=== PATIENT | female | born 1935 | race Caucasian/White ===

== ENCOUNTER 2020-01-11 16:36 | Inpatient (IN) | payer MEDICARE, OTHER ==
[~2020-01-11] VITALS: Ht 162.6 cm; Wt 92.8 kg
[2020-01-11] MEDS ORDERED: DILTIAZEM 5 MG/ML, 5ML ONE (17:04)
[2020-01-11] MEDS ORDERED: DILTIAZEM 60 MG TABLET ONE (17:04)
--- NOTE | 2020-01-11 17:13 | NUR ---
PT SITTING IN BED, MEDICATED TO NOV, WILL CONTINUE TO MONITOR.
[2020-01-11] MEDS ORDERED: DILTIAZEM 5 MG/ML, 5ML IVPush ONE ×2 (17:30→19:00)
[2020-01-11] MEDS ORDERED: DILTIAZEM 60 MG TABLET PO ONE (17:30)
[2020-01-11 17:36] LABS: BASOPHILS # (AUTO) 0.03 x10^3/uL (0-0.1); BASOPHILS % (AUTO) 0 % (0-1); EOSINOPHILS # (AUTO) 1.12 x10^3/uL (0-0.4); EOSINOPHILS % (AUTO) 11 % (1-7); LYMPHOCYTES # (AUTO) 2.17 x10^3/uL (1-3.4); LYMPHOCYTES % (AUTO) 22 % (22-44); MD NO; MEAN CORPUSCULAR HEMOGLOBIN 28.8 pg (27.0-34.8); MEAN CORPUSCULAR HGB CONC 32.7 g/dL (32.4-35.8); MEAN PLATELET VOLUME 10.7 fL (7.4-10.4); MONOCYTES # (AUTO) 0.64 x10^3/uL (0.2-0.8); MONOCYTES % (AUTO) 6 % (2-9); NEUTROPHILS # (AUTO) 6.04 x10^3/uL (1.8-6.8); NEUTROPHILS % (AUTO) 60 % (42-75); PLATELET COUNT 159 x10^3/uL (130-400); RED CELL DISTRIBUTION WIDTH 13.6 % (9.6-15.2)
[2020-01-11 17:42] LABS: ALANINE AMINOTRANSFERASE 24 U/L (12-78); ALBUMIN 2.7 g/dL (3.4-5.0); ANION GAP 6 mmol/L (5-15); CALCIUM 8.6 mg/dL (8.5-10.1); CHLORIDE 109 mmol/L (98-107); CREATININE 1.12 mg/dL (0.55-1.02)
[2020-01-11 17:44] LABS: INTERNATIONAL NORMALIZED RATIO 1.02 (0.93-1.1); PROTHROMBIN TIME 10.8 Seconds (9.6-11.5)
[2020-01-11 17:47] LABS: ALKALINE PHOSPHATASE 99 U/L (45-117); BILIRUBIN,TOTAL 0.9 mg/dL (0.2-1.0); TOTAL PROTEIN 6.8 g/dL (6.4-8.2); TROPONIN I < 0.015 ng/mL (0.000-0.045)
[2020-01-11] MEDS ORDERED: ALBU1.25 NEB (17:54)
[2020-01-11] MEDS ORDERED: TRAM50TA2 PO (17:54)
[2020-01-11] MEDS ORDERED: SPIR25TA5 PO (17:54)
--- NOTE | 2020-01-11 17:55 | NUR ---
PT SITTING IN BED, NO SIGNS OF DISTRESS. WILL CONTINUE TO MONITOR.
--- NOTE | 2020-01-11 18:19 | NUR ---
PT SITTING IN BED, NO SIGNS OF DISTRESS, WILL CONTINUE TO MONITOR.
--- NOTE | 2020-01-11 18:46 | NUR ---
GABI, DAUGHTER, OKAY TO UPDATE, .
--- NOTE | 2020-01-11 18:59 | NUR ---
REPORT GIVEN TO RYAN DICKERSON.
--- NOTE | 2020-01-11 19:03 | NUR ---
PT SITTING UP ON GURNEY WATCHING TV, MONITORS IN PLACE, SIDERAIL SUP X2, CALL LIGHT WITHIN REACH. MEDICATED PER MAR. AWAITING ROOM FOR ADMIT
--- NOTE | 2020-01-11 20:52 | NUR ---
ATTEMPTED TO CALL REPORT, NOTIFIED THAT RN WILL CALL BACK FOR REPORT
[2020-01-11] MEDS ORDERED: ASPIRIN 325 MG TABLET EC PO ONE (21:00)
[2020-01-11] MEDS ORDERED: ONDANSETRON 2MG/ML, 2ML IVPush PRN (21:00)
[2020-01-11] MEDS ORDERED: hydrALAzine 20 MG/ML, 1ML IVPush PRN (21:00)
[2020-01-11] MEDS ORDERED: ACETAMINOPHEN 325 MG TABLET PO PRN (21:00)
[2020-01-11 22:00] VITALS: BP 128/62
[2020-01-11] MEDS: ALBUTEROL HFA 90 MCG/SPRAY INH PRN (23:32)
[2020-01-12 01:47] VITALS: BP 118/94
[2020-01-12] MEDS: DILTIAZEM 125 MG in SODIUM CHLORIDE 0.9% 100 ML IV SCH ×2 (05:38→17:55)
[2020-01-12] MEDS: ASPIRIN 325 MG TABLET EC PO SCH (05:39)
[2020-01-12] MEDS: ALBUTEROL HFA 90 MCG/SPRAY INH PRN (05:39)
[2020-01-12 05:43] LABS: ANION GAP 6 mmol/L (5-15); CALCIUM 8.8 mg/dL (8.5-10.1); CHLORIDE 109 mmol/L (98-107)
[2020-01-12 05:49] LABS: CREATININE 0.98 mg/dL (0.55-1.02); TROPONIN I 0.021 ng/mL (0.000-0.045)
[2020-01-12 06:45] LABS: MEAN CORPUSCULAR HEMOGLOBIN 28.4 pg (27.0-34.8); MEAN CORPUSCULAR HGB CONC 31.9 g/dL (32.4-35.8); MEAN CORPUSCULAR VOLUME 88.8 fL (80-100); MEAN PLATELET VOLUME 10.2 fL (7.4-10.4); PLATELET COUNT 85 x10^3/uL (130-400); RED BLOOD COUNT 4.94 x10^6/uL (3.82-5.3); RED CELL DISTRIBUTION WIDTH 14.1 % (9.6-15.2)
[2020-01-12 06:47] LABS: MD SCAN
[2020-01-12 06:48] LABS: BASOPHILS # (AUTO) 0.14 x10^3/uL (0-0.1); BASOPHILS % (AUTO) 2 % (0-1); EOSINOPHILS # (AUTO) 1.54 x10^3/uL (0-0.4); EOSINOPHILS % (AUTO) 16 % (1-7); LYMPHOCYTES % (AUTO) 24 % (22-44); MONOCYTES # (AUTO) 0.87 x10^3/uL (0.2-0.8); MONOCYTES % (AUTO) 9 % (2-9); NEUTROPHILS % (AUTO) 50 % (42-75)
[2020-01-12 07:37] VITALS: BP 125/81
[2020-01-12] MEDS: LORazepam 0.5MG TABLET PO PRN ×2 (08:54→21:20)
[2020-01-12] MEDS: SPIRONOLACTONE 25 MG TABLET PO SCH (08:54)
[2020-01-12 13:43] VITALS: BP 101/61
[2020-01-12] MEDS ORDERED: METH5TAB4 PO (14:32)
[2020-01-12] MEDS ORDERED: LIDO700A20 TD (14:32)
[2020-01-12] MEDS ORDERED: OMEP40CA42 PO (14:32)
[2020-01-12] MEDS ORDERED: DULO60CA56 PO (14:32)
[2020-01-12] MEDS ORDERED: LOSA100T14 PO (14:32)
[2020-01-12] MEDS ORDERED: CYAN-10 PO (14:32)
[2020-01-12] MEDS ORDERED: SULI150T PO (14:32)
[2020-01-12] MEDS ORDERED: TOLT2CAP22 PO (14:32)
[2020-01-12] MEDS ORDERED: NITR0.6T4 SL (14:32)
[2020-01-12] MEDS ORDERED: CARV6.25 PO (14:32)
[2020-01-12] MEDS ORDERED: FURO40TA6 PO (14:32)
[2020-01-12] MEDS: ENOXAPARIN 40 MG/0.4 ML SQ SCH (14:37)
[2020-01-12] MEDS: INSULIN LISPRO 100 UNITS/ML, PEN SQ-INSULIN SCH ×2 (17:33→21:20)
[2020-01-12 20:36] VITALS: BP 122/79
[2020-01-12] MEDS ORDERED: METOPROLOL 1 MG/ML, 5ML IVPush PRN (22:00)
[2020-01-13 01:42] VITALS: BP 110/65
[2020-01-13] MEDS: ASPIRIN 325 MG TABLET EC PO SCH (05:21)
[2020-01-13 05:36] LABS: MEAN CORPUSCULAR HEMOGLOBIN 28.7 pg (27.0-34.8); MEAN CORPUSCULAR HGB CONC 32.4 g/dL (32.4-35.8); MEAN CORPUSCULAR VOLUME 88.7 fL (80-100); PLATELET COUNT 138 x10^3/uL (130-400); RED BLOOD COUNT 4.58 x10^6/uL (3.82-5.3); RED CELL DISTRIBUTION WIDTH 14.2 % (9.6-15.2)
[2020-01-13 05:46] LABS: CHLORIDE 108 mmol/L (98-107)
[2020-01-13 05:53] LABS: MD YES
[2020-01-13 05:54] LABS: BASOS#(MANUAL) 0.17 x10^3/uL (0-0.1); BASOS% (MANUAL) 1 % (0-1); EOS#(MANUAL) 0.68 x10^3/uL (0.0-0.4); EOS% (MANUAL) 4 % (1-7); LYMPH#(MANUAL) 0.86 x10^3/uL (1-3.4); LYMPHS% (MANUAL) 5 % (22-44); MONOS#(MANUAL) 0.86 x10^3/uL (0.3-2.7); MONOS% (MANUAL) 5 % (2-9); SEG#(MANUAL) 14.54 x10^3/uL (1.8-6.8); SEGS% (MANUAL) 85 % (42-75)
[2020-01-13 05:55] LABS: <PLATELET ESTIMATE> ADEQUATE; <RBC MORPHOLOGY> NORMAL; LARGE PLATELETS 1+
[2020-01-13 06:01] LABS: ALANINE AMINOTRANSFERASE 27 U/L (12-78); ALBUMIN 2.8 g/dL (3.4-5.0); ALKALINE PHOSPHATASE 89 U/L (45-117); ANION GAP 8 mmol/L (5-15); BILIRUBIN,TOTAL 1.4 mg/dL (0.2-1.0); CALCIUM 8.8 mg/dL (8.5-10.1); CREATININE 1.18 mg/dL (0.55-1.02); TOTAL PROTEIN 7.3 g/dL (6.4-8.2)
[2020-01-13] MEDS: DILTIAZEM 125 MG in SODIUM CHLORIDE 0.9% 100 ML IV SCH (06:28)
[2020-01-13 07:31] VITALS: BP 126/81
[2020-01-13] MEDS: CARVEDILOL 6.25 MG TABLET PO SCH ×2 (07:49→19:30)
[2020-01-13] MEDS: INSULIN LISPRO 100 UNITS/ML, PEN SQ-INSULIN SCH ×4 (07:50→20:37)
[2020-01-13] MEDS: SPIRONOLACTONE 25 MG TABLET PO SCH (07:51)
[2020-01-13 08:10] VITALS: BP 138/57
[2020-01-13] MEDS: ENOXAPARIN 40 MG/0.4 ML SQ SCH (12:03)
[2020-01-13 12:14] VITALS: BP 109/59
[2020-01-13] MEDS: DILTIAZEM 30 MG TABLET PO SCH ×3 (13:00→20:36)
[2020-01-13] MEDS ORDERED: DILTIAZEM 60 MG TABLET ONE (13:38)
[2020-01-13 17:23] LABS: MICROSCOPIC INDICATED
[2020-01-13 17:24] LABS: CULTURE INDICATED? YES
[2020-01-13 19:30] VITALS: BP 117/73
[2020-01-14 02:00] VITALS: BP 102/72
[2020-01-14 05:26] VITALS: BP 113/62
[2020-01-14] MEDS: ASPIRIN 325 MG TABLET EC PO SCH (05:27)
[2020-01-14] MEDS: CARVEDILOL 6.25 MG TABLET PO SCH ×2 (05:27→18:21)
[2020-01-14] MEDS: DILTIAZEM 30 MG TABLET PO SCH ×4 (05:27→19:35)
[2020-01-14 07:53] VITALS: BP 113/67
[2020-01-14 08:44] LABS: MEAN CORPUSCULAR HEMOGLOBIN 28.4 pg (27.0-34.8); MEAN CORPUSCULAR HGB CONC 31.9 g/dL (32.4-35.8); MEAN PLATELET VOLUME 10.8 fL (7.4-10.4); PLATELET COUNT 138 x10^3/uL (130-400); RED CELL DISTRIBUTION WIDTH 14.3 % (9.6-15.2)
[2020-01-14 08:56] LABS: ALANINE AMINOTRANSFERASE 24 U/L (12-78); ALBUMIN 2.8 g/dL (3.4-5.0); ANION GAP 8 mmol/L (5-15); CALCIUM 9.2 mg/dL (8.5-10.1); CHLORIDE 103 mmol/L (98-107); CREATININE 1.25 mg/dL (0.55-1.02)
[2020-01-14 08:58] LABS: ALKALINE PHOSPHATASE 96 U/L (45-117); BILIRUBIN,TOTAL 1.1 mg/dL (0.2-1.0); TOTAL PROTEIN 7.6 g/dL (6.4-8.2)
[2020-01-14] MEDS: AZITHROMYCIN 500 MG in SODIUM CHLORIDE 0.9% 250 ML IV SCH (09:07)
[2020-01-14] MEDS: INSULIN LISPRO 100 UNITS/ML, PEN SQ-INSULIN SCH ×4 (09:07→21:37)
[2020-01-14] MEDS: SPIRONOLACTONE 25 MG TABLET PO SCH (09:08)
[2020-01-14 09:13] LABS: BASOPHILS % (AUTO) 0 % (0-1); EOSINOPHILS % (AUTO) 0 % (1-7); LYMPHOCYTES # (AUTO) 1.03 x10^3/uL (1-3.4); LYMPHOCYTES % (AUTO) 9 % (22-44); MD SCAN; MONOCYTES % (AUTO) 2 % (2-9); NEUTROPHILS # (AUTO) 9.96 x10^3/uL (1.8-6.8); NEUTROPHILS % (AUTO) 89 % (42-75)
[2020-01-14] MEDS: ENOXAPARIN 40 MG/0.4 ML SQ SCH (12:18)
[2020-01-14] MEDS: CEFTRIAXONE PMX 1GM/50ML 50 ML IV SCH (12:18)
[2020-01-14 13:57] VITALS: BP 95/49
[2020-01-14 16:15] VITALS: BP 101/48
[2020-01-14] MEDS: INSULIN GLARGINE 100 UNITS/ML, PEN SQ-INSULIN SCH (19:35)
[2020-01-14 19:55] VITALS: BP 108/63
[2020-01-15 02:10] VITALS: BP 113/71
[2020-01-15] MEDS: DILTIAZEM 30 MG TABLET PO SCH (05:49)
[2020-01-15] MEDS: CARVEDILOL 6.25 MG TABLET PO SCH ×2 (05:49→16:45)
[2020-01-15] MEDS: ASPIRIN 325 MG TABLET EC PO SCH (05:49)
[2020-01-15 06:00] VITALS: BP 113/66
[2020-01-15 08:05] VITALS: BP 113/63
[2020-01-15] MEDS: CEFTRIAXONE PMX 1GM/50ML 50 ML IV SCH (08:27)
[2020-01-15] MEDS: INSULIN LISPRO 100 UNITS/ML, PEN SQ-INSULIN SCH ×4 (08:27→21:20)
[2020-01-15] MEDS: INSULIN GLARGINE 100 UNITS/ML, PEN SQ-INSULIN SCH ×2 (08:28→21:21)
[2020-01-15] MEDS: AZITHROMYCIN 500 MG in SODIUM CHLORIDE 0.9% 250 ML IV SCH (09:00)
[2020-01-15] MEDS: DILTIAZEM 60 MG TABLET PO SCH ×3 (11:56→21:19)
[2020-01-15] MEDS: ENOXAPARIN 40 MG/0.4 ML SQ SCH (11:56)
[2020-01-15] MEDS ORDERED: INSULIN GLARGINE 100 UNITS/ML, PEN SQ-INSULIN ONE (12:00)
[2020-01-15 14:34] VITALS: BP 97/52
[2020-01-15 21:33] VITALS: BP 110/63
[2020-01-16 01:43] VITALS: BP 103/61
[2020-01-16] MEDS: ASPIRIN 325 MG TABLET EC PO SCH (06:15)
[2020-01-16] MEDS: DILTIAZEM 60 MG TABLET PO SCH ×4 (06:15→20:40)
[2020-01-16] MEDS: CARVEDILOL 6.25 MG TABLET PO SCH ×2 (06:16→17:45)
[2020-01-16 06:20] VITALS: BP 104/65
[2020-01-16 07:04] VITALS: BP 122/74
[2020-01-16] MEDS: CEFTRIAXONE PMX 1GM/50ML 50 ML IV SCH (09:23)
[2020-01-16] MEDS: INSULIN GLARGINE 100 UNITS/ML, PEN SQ-INSULIN SCH ×2 (09:24→20:44)
[2020-01-16] MEDS: INSULIN LISPRO 100 UNITS/ML, PEN SQ-INSULIN SCH ×4 (09:25→20:44)
[2020-01-16] MEDS ORDERED: ALBUTEROL SULFATE 2.5 MG/3 ML NPPB PRN (10:30)
[2020-01-16] MEDS: AZITHROMYCIN 500 MG in SODIUM CHLORIDE 0.9% 250 ML IV SCH (10:42)
[2020-01-16] MEDS: ENOXAPARIN 40 MG/0.4 ML SQ SCH (11:57)
[2020-01-16 12:07] LABS: ANION GAP 6 mmol/L (5-15); CALCIUM 9.2 mg/dL (8.5-10.1); CHLORIDE 107 mmol/L (98-107)
[2020-01-16 13:09] LABS: BASOPHILS # (AUTO) 0.09 x10^3/uL (0-0.1); BASOPHILS % (AUTO) 1 % (0-1); EOSINOPHILS # (AUTO) 0.09 x10^3/uL (0-0.4); EOSINOPHILS % (AUTO) 1 % (1-7); LYMPHOCYTES % (AUTO) 17 % (22-44); MD NO; MEAN CORPUSCULAR HEMOGLOBIN 28.5 pg (27.0-34.8); MEAN CORPUSCULAR HGB CONC 32.1 g/dL (32.4-35.8); MEAN CORPUSCULAR VOLUME 88.6 fL (80-100); MEAN PLATELET VOLUME 10.5 fL (7.4-10.4); MONOCYTES # (AUTO) 0.89 x10^3/uL (0.2-0.8); MONOCYTES % (AUTO) 7 % (2-9); NEUTROPHILS # (AUTO) 9.51 x10^3/uL (1.8-6.8); NEUTROPHILS % (AUTO) 74 % (42-75); PLATELET COUNT 198 x10^3/uL (130-400); RED BLOOD COUNT 4.75 x10^6/uL (3.82-5.3); RED CELL DISTRIBUTION WIDTH 14.3 % (9.6-15.2)
[2020-01-16] MEDS ORDERED: TAMSULOSIN 0.4 MG CAP.ER.24H PO ONE (14:00)
[2020-01-16 14:07] LABS: MICROSCOPIC NOT IND
[2020-01-16 14:32] VITALS: BP 112/67
[2020-01-16 20:01] VITALS: BP 105/73
[2020-01-17] MEDS: LORazepam 0.5MG TABLET PO PRN (01:17)
[2020-01-17 01:23] VITALS: BP 108/74
[2020-01-17 05:43] VITALS: BP 107/69
[2020-01-17] MEDS: DILTIAZEM 60 MG TABLET PO SCH ×2 (05:45→12:00)
[2020-01-17] MEDS: ASPIRIN 325 MG TABLET EC PO SCH (05:45)
[2020-01-17] MEDS: CARVEDILOL 6.25 MG TABLET PO SCH (05:45)
[2020-01-17 07:25] VITALS: BP 105/71
[2020-01-17 07:31] LABS: BASOPHILS # (AUTO) 0.03 x10^3/uL (0-0.1); BASOPHILS % (AUTO) 0 % (0-1); EOSINOPHILS # (AUTO) 0.02 x10^3/uL (0-0.4); EOSINOPHILS % (AUTO) 0 % (1-7); LYMPHOCYTES # (AUTO) 1.67 x10^3/uL (1-3.4); LYMPHOCYTES % (AUTO) 17 % (22-44); MD NO; MEAN CORPUSCULAR HEMOGLOBIN 28.6 pg (27.0-34.8); MEAN CORPUSCULAR HGB CONC 32.3 g/dL (32.4-35.8); MEAN CORPUSCULAR VOLUME 88.4 fL (80-100); MEAN PLATELET VOLUME 10.1 fL (7.4-10.4); MONOCYTES # (AUTO) 0.67 x10^3/uL (0.2-0.8); MONOCYTES % (AUTO) 7 % (2-9); NEUTROPHILS # (AUTO) 7.68 x10^3/uL (1.8-6.8); NEUTROPHILS % (AUTO) 76 % (42-75); PLATELET COUNT 169 x10^3/uL (130-400); RED BLOOD COUNT 4.86 x10^6/uL (3.82-5.3); RED CELL DISTRIBUTION WIDTH 14.4 % (9.6-15.2)
[2020-01-17 07:43] LABS: ANION GAP 6 mmol/L (5-15); CALCIUM 9.5 mg/dL (8.5-10.1); CHLORIDE 104 mmol/L (98-107); CREATININE 1.18 mg/dL (0.55-1.02)
[2020-01-17] MEDS: CEFTRIAXONE PMX 1GM/50ML 50 ML IV SCH (08:04)
[2020-01-17] MEDS: INSULIN GLARGINE 100 UNITS/ML, PEN SQ-INSULIN SCH (08:05)
[2020-01-17] MEDS: INSULIN LISPRO 100 UNITS/ML, PEN SQ-INSULIN SCH ×2 (08:05→12:00)
[2020-01-17] MEDS: AZITHROMYCIN 500 MG in SODIUM CHLORIDE 0.9% 250 ML IV SCH (09:52)
[2020-01-17] MEDS ORDERED: DILT60TA27 PO (10:53)
[2020-01-17] MEDS ORDERED: APIX5TAB PO (10:53)
[2020-01-17] MEDS ORDERED: CEFD300C37 PO (11:19)
[2020-01-17] MEDS ORDERED: AZIT500T10 PO (11:19)
[2020-01-17] MEDS ORDERED: LOSA25TA12 PO (11:35)
[2020-01-17] MEDS: ENOXAPARIN 40 MG/0.4 ML SQ SCH (13:45)
[2020-01-17 13:48] VITALS: BP 121/69
== END 2020-01-17 15:00 | disposition home or self-care (01) | DRG 190 ==
LOC: ED 17:40 → EDIP 19:38 → 3WST 21:32 → 5SO 01-15 23:22
PROVIDERS: ADMIT Internal Medicine; ATTEND Hospitalist
DX: J44.0 Chronic obstructive pulmonary disease with (acute) lower respiratory infection (principal); J18.9 Pneumonia, unspecified organism; D68.69 Other thrombophilia; J96.11 Chronic respiratory failure with hypoxia; N17.9 Acute kidney failure, unspecified; J44.1 Chronic obstructive pulmonary disease with (acute) exacerbation; I48.0 Paroxysmal atrial fibrillation; D72.810 Lymphocytopenia; E11.65 Type 2 diabetes mellitus with hyperglycemia; E66.9 Obesity, unspecified; Z68.35 Body mass index [BMI] 35.0-35.9, adult; Z20.828 Contact with and (suspected) exposure to other viral communicable diseases; G35 Multiple sclerosis; I08.1 Rheumatic disorders of both mitral and tricuspid valves; M45.9 Ankylosing spondylitis of unspecified sites in spine; Z79.4 Long term (current) use of insulin; G25.0 Essential tremor; Z82.49 Family history of ischemic heart disease and other diseases of the circulatory system; Z86.73 Personal history of transient ischemic attack (TIA), and cerebral infarction without residual deficits; Z86.718 Personal history of other venous thrombosis and embolism; Z90.49 Acquired absence of other specified parts of digestive tract; I10 Essential (primary) hypertension
CPT/HCPCS: 36415; 71045; 80048; 80053; 81001; 81003; 82728; 82962; 83036; 83615; 83880; 84145; 84443; 84484; 85025; 85379; 85610; 85730; 86140; 87077; 87086; 87186; 93005; 93306; 94640; 96374; 96375; 99285; G0378; J0456; J0696; J1650; J7613; J1815; J7050; J7512; U0001

== ENCOUNTER 2020-03-24 13:37 | Inpatient (IN) | payer MEDICARE, OTHER ==
[~2020-03-24] VITALS: Ht 157.5 cm; Wt 77.6 kg
[~2020-03-24 13:37] MED LIST: ACID1TAB7 PO; ALBU1.25 NEB; APIX5TAB PO; AZIT500T10 PO; CARV6.25 PO; CEFD300C37 PO; CYAN-10 PO; DILT60TA27 PO; DULO60CA56 PO; FURO40TA6 PO; LIDO700A20 TD; LOSA100T14 PO; LOSA25TA12 PO; METH5TAB4 PO; NITR0.6T4 SL; OMEP40CA42 PO; RISP0.5T24 PO; SPIR25TA5 PO; SULI150T PO; TOLT2CAP22 PO; TRAM50TA2 PO; metformin PO
--- NOTE | 2020-03-24 13:58 | NUR ---
XAVIER FROM [facility] D/T A-FIB(RATE 90'S-170'S) AND FATIGUE. HX OF A-FIB. DENIES COUGH/SOB/FEVER. PT HAS BILATERAL EDEMA ON LE. PT IS HYPOTENSIVE 77/42 AT THIS TIME. EDMD AWARE. NS BOLUS INFUSING AT THIS TIME. ALL MONITORS IN PLACE. CALL LIGHT WITHIN REACH. EDMD AT BEDSIDE TO EVALUATE AT THIS TIME.
--- NOTE | 2020-03-24 14:04 | NUR ---
BG 168 AT THIS TIME. EDMD NOTIFIED.
[2020-03-24 14:37] LABS: MEAN CORPUSCULAR HEMOGLOBIN 29.4 pg (27.0-34.8); MEAN CORPUSCULAR HGB CONC 32.6 g/dL (32.4-35.8); MEAN PLATELET VOLUME 9.6 fL (7.4-10.4); PLATELET COUNT 217 x10^3/uL (130-400); RED BLOOD COUNT 4.13 x10^6/uL (3.82-5.3); RED CELL DISTRIBUTION WIDTH 17.5 % (9.6-15.2)
[2020-03-24 14:40] LABS: ALBUMIN 2.5 g/dL (3.4-5.0); ANION GAP 7 mmol/L (5-15); CALCIUM 8.4 mg/dL (8.5-10.1); CHLORIDE 114 mmol/L (98-107)
--- NOTE | 2020-03-24 14:43 | NUR ---
NOTED PT INCONTINENT OF URINE AND STOOL. SKIN CARE AND FULL LINEN CHANGED COMPLETED. PT'S STRAIGHT CATH'D USING STERILE TECHNIQUE. PT TOLERATED WELL. THIS RN WALKED TO LAB.
[2020-03-24 14:46] LABS: ALANINE AMINOTRANSFERASE 13 U/L (12-78); ALKALINE PHOSPHATASE 105 U/L (45-117); BILIRUBIN,TOTAL 1.5 mg/dL (0.2-1.0); CREATININE 2.39 mg/dL (0.55-1.02); TOTAL PROTEIN 7.1 g/dL (6.4-8.2); TROPONIN I < 0.015 ng/mL (0.000-0.045)
[2020-03-24 14:48] LABS: D-DIMER 3.85 ug/mlFEU (0.00-0.52); INTERNATIONAL NORMALIZED RATIO 1.08 (0.93-1.1); PROTHROMBIN TIME 11.5 Seconds (9.6-11.5)
[2020-03-24 14:56] LABS: MD YES
[2020-03-24] MEDS ORDERED: SODIUM CHLORIDE FLUSH 10ML SYR IVF ONE (15:00)
[2020-03-24] MEDS ORDERED: SODIUM CHLORIDE 0.9% 1,000ML IVBOLUS ONE ×3 (15:00→18:30)
--- NOTE | 2020-03-24 15:13 | NUR ---
pt's bp is 71/36 at this time. edmd aware of hypotensive. ns 500ml bolus infusing at this time per edmd verbal order.
[2020-03-24 15:27] LABS: MICROSCOPIC INDICATED
[2020-03-24] MEDS ORDERED: ASPI-496 PO (15:29)
[2020-03-24] MEDS ORDERED: GLIP2.5T3 PO (15:30)
[2020-03-24] MEDS ORDERED: OMEP20TA62 PO (15:30)
[2020-03-24] MEDS ORDERED: SPIR25TA5 PO (15:31)
--- NOTE | 2020-03-24 15:36 | NUR ---
PT'S BP IS 80/36 AFTER 00ML NS BOLUS X 2 TIMES. EDMD AWARE AND EDMD ORDERED CTA AT THIS TIME. THIS RN PAGED CT AT THIS TIME.
--- NOTE | 2020-03-24 15:46 | NUR ---
CT CALLED D/T KIDNEY FUNCTION. EDMD NOTIFIED.
[2020-03-24 15:51] LABS: BAND#(MANUAL) 5.22 x10^3/uL; BANDS%(MANUAL) 36 % (0-7); BASOS#(MANUAL) 0.15 x10^3/uL (0-0.1); BASOS% (MANUAL) 1 % (0-1); LYMPHS% (MANUAL) 11 % (22-44); METAMYELOCYTES# (MANUAL) 0.29 x10^3/uL (0-0); METAMYELOCYTES% (MANUAL) 2 % (0-1); MONOS#(MANUAL) 1.89 x10^3/uL (0.3-2.7); MONOS% (MANUAL) 13 % (2-9); REACTIVE LYMPHS # (MANUAL) 0.15 x10^3/uL (0-0); REACTIVE LYMPHS % (MANUAL) 1 % (0-0); SEG#(MANUAL) 5.22 x10^3/uL (1.8-6.8); SEGS% (MANUAL) 36 % (42-75)
[2020-03-24 15:53] LABS: <PLATELET ESTIMATE> ADEQUATE; <PLT MORPHOLOGY> NORMAL PLT MORPH; ANISOCYTOSIS 1+; OVALOCYTES 1+
[2020-03-24] MEDS ORDERED: HEPARIN 5,000 UNITS/ML, 1ML ONE ×2 (16:07→23:43)
[2020-03-24] MEDS ORDERED: HEPARIN 25,000 UNITS/250ML PMX 250 ML ONE (16:07)
[2020-03-24] MEDS: HEPARIN 25,000 UNITS/250ML PMX 250 ML IV PRN (16:19)
--- NOTE | 2020-03-24 16:28 | NUR ---
pt medicated per emar. pt tolerated well. heparin infusing at this time.
--- NOTE | 2020-03-24 16:37 | NUR ---
2nd piv est by grady brandt by us. pt tolerated well.
--- NOTE | 2020-03-24 16:41 | NUR ---
us at bedside at this time.
--- NOTE | 2020-03-24 16:58 | NUR ---
med ordered from pharmacy at this time.
[2020-03-24] MEDS ORDERED: ALBUMIN HUMAN 25% 50 ML IV ONE (17:00)
[2020-03-24] MEDS ORDERED: BISACODYL 10 MG SUPP PR PRN (17:00)
[2020-03-24] MEDS ORDERED: ACETAMINOPHEN 325 MG TABLET PO PRN (17:00)
[2020-03-24] MEDS ORDERED: HEPARIN 5,000 UNITS/ML, 1ML IV ONE (17:00)
[2020-03-24] MEDS ORDERED: ONDANSETRON 2MG/ML, 2ML IVPush PRN (17:00)
--- NOTE | 2020-03-24 17:12 | NUR ---
albumin infusing at this time. pt's r ac piv was removed by accident at this time.
--- NOTE | 2020-03-24 17:22 | NUR ---
TASK RN: ALBUMIN BOLUS COMPLETED-B/P & HR STILL QUITE LOW. US TECHNICAL SOLUTIONS ENGINEER AT BEDSIDE. pROVIDER MADE AWARE OF CONTINUED HYPOTENSION, LE US READ- PLAN TO CONTINUE HEPARIN, PLACE CENTRAL LINE. START AMIODARONE AND HOPEFILLY REDUCING HR WILL RAISE B/P
[2020-03-24] MEDS ORDERED: FILTER 0.22 MICRON FOR AMIODARONE IV PRN (17:30)
--- NOTE | 2020-03-24 17:30 | NUR ---
AMIO BOLUSCOMPLETE WITH NO NOTICEABLE REDUCTION IN HR, OR IMPROVEMENT IN SBP
--- NOTE | 2020-03-24 17:36 | NUR ---
pt moved to trauma 3 at this time.
[2020-03-24] MEDS ORDERED: AMIODARONE 150 MG in DEXTROSE 5% 97 ML IVPB ONE (17:37)
--- NOTE | 2020-03-24 17:50 | NUR ---
LAB AT BEDSIDE- BLOOD CULTURES X 2 DRAWN
--- NOTE | 2020-03-24 17:50 | NUR ---
CENTRAL LINE PLACED IN STERILE MANNER WITH 2 PROVIDER CONSENT (PATIENT TOO ALTERED/DROWSY TO CONSENT)
[2020-03-24] MEDS ORDERED: AMIODARONE 150 MG in DEXTROSE 5% 100 ML IV ONE (18:00)
[2020-03-24] MEDS ORDERED: ALBUMIN HUMAN 25% 100 ML IV ONE (18:00)
[2020-03-24] MEDS: AMIODARONE 450 MG in DEXTROSE 5% 241 ML IV PRN (18:21)
--- NOTE | 2020-03-24 18:22 | NUR ---
Total on 2l NS infused (between Ems and ER) and amio maint gtt started: hr remains 137, 85/44 Levophed requested from pharmacy
[2020-03-24] MEDS ORDERED: NOREPINEPHRINE 8 MG in SODIUM CHLORIDE 0.9% 242 ML IV PRN (18:30)
[2020-03-24] MEDS: ERTAPENEM 1 GM in SODIUM CHLORIDE 0.9% 50 ML IV SCH (18:35)
--- NOTE | 2020-03-24 18:36 | NUR ---
levophed and ertapenem administerd per emar (levophed started at 0.1mcg/kg)
--- NOTE | 2020-03-24 18:47 | NUR ---
second b/p after levophed admin down to 94/53 (60). rate increased to 0.11mcg/kg/min
--- NOTE | 2020-03-24 18:54 | NUR ---
Ertapenem (abx) infusion complete, Provider asked if her would like complimentary abx (vanc)-provider considering. Also clarified need for Heparin and Amiodarone drips needs as patient's hr unchanged post amio bolus and 20 min of drip and heparin started as provider worried for clot ans patient with uncontrolled afib/bed bound and only on aspirin Report to Milagros DAVIS
--- NOTE | 2020-03-24 19:10 | NUR ---
report from grady assumed care of pt, pt in nad at this time vss
--- NOTE | 2020-03-24 19:27 | NUR ---
pt stooled linen changed no skin break down noted, redness noted to buttocks, pure wick placed
--- NOTE | 2020-03-24 20:27 | NUR ---
Float RN: Pt resting with no needs expressed. No acute changes noted.
[2020-03-24 20:50] LABS: TROPONIN I < 0.015 ng/mL (0.000-0.045)
--- NOTE | 2020-03-24 22:45 | NUR ---
able to reassume care of pt at this time vss pt sleeping
[2020-03-24] MEDS: SODIUM CHLORIDE 0.9% 1,000 ML IV SCH (22:56)
--- NOTE | 2020-03-24 23:05 | NUR ---
REQUESTED HUMALOG PEN FROM PHARMACY.
[2020-03-24] MEDS: INSULIN LISPRO 100 UNITS/ML, PEN SQ-INSULIN SCH (23:13)
[2020-03-24] MEDS: HEPARIN 5,000 UNITS/ML, 1ML IV PRN (23:46)
--- NOTE | 2020-03-24 23:54 | NUR ---
FLOJANES RN: PT HEPARIN ADJUSTED DUE TO ANTIXA. VERIFIED WITH IMAN Perdue RN. PT SLEEPING. RESPIRATIONS EVEN AND UNLABORED, NO DISTRESS NOTED. ALL VITALS STABLE
--- NOTE | 2020-03-25 00:01 | NUR ---
NEXT ANTIXA ORDERED WELL
--- NOTE | 2020-03-25 01:08 | NUR ---
Float RN: Pt sleeping with resp even and unlabored. VSS. IV drips infusing via pump. No acute changes noted.
--- NOTE | 2020-03-25 01:56 | NUR ---
REPORT TO MARSHAL
[2020-03-25 02:36] LABS: TROPONIN I < 0.015 ng/mL (0.000-0.045)
--- NOTE | 2020-03-25 03:26 | NUR ---
PT RESTING IN BED, SERVICE CLERK WILL CONTINUE TO MONITOR PT
--- NOTE | 2020-03-25 06:48 | NUR ---
PT RESTING IN BED, PT DENIED ANY WANTS OR NEEDS AT THIS TIME, EQUAL OPPORTUNITY ASSISTANT WILL CONTINUE TO MONITOR
--- NOTE | 2020-03-25 07:10 | NUR ---
REPORT RECEIVED FROM RYAN OBRIEN. ASSUMED CARE OF PT. PT CURRENTLY DOZING ON [place]. SKIN SLIGHTLY PALE, WARM AND DRY. RESP EVEN AND UNLABORED. PT ON CONT CARDIAC, BP AND SPO2 MONITORS. CALL LIGHT WITHIN REACH. WILL CONT TO MONITOR PT.
[2020-03-25] MEDS: INSULIN LISPRO 100 UNITS/ML, PEN SQ-INSULIN SCH ×4 (07:42→21:00)
[2020-03-25] MEDS ORDERED: PANTOPRAZOLE 40 MG IV ONE (07:44)
--- NOTE | 2020-03-25 08:00 | NUR ---
NO CHANGE MADE TO HEPARIN DRIP PER PROTOCOL.
[2020-03-25] MEDS: PANTOPRAZOLE 40 MG IV IVPush SCH (08:14)
--- NOTE | 2020-03-25 08:24 | NUR ---
LABS REDRAWN AT THIS TIME. PER RYAN OBRIEN FROM STOCK WORKER AND DELIVERER, PT'S ORIGINAL LABS WERE DRAWN OFF CENTRAL LINE AND THE DRAW WAS SLOW. WAITING FOR CONFIRMATION OF H&H AND WILL CALL MD IMMEDIATELY WITH RESULTS. PT DIFFICULT DRAW, THIRD COAT JOINER WAS ABLE TO GET BLOOD. PT AO X 4. SKIN SLIGHTLY PALE, WARM AND DRY. PT ON CONT BP, CARDIAC AND SPO2 MONITORS. CALL LIGHT WITHIN REACH. WILL CONT TO MONITOR PT.
[2020-03-25 08:29] LABS: MEAN CORPUSCULAR HEMOGLOBIN 29.6 pg (27.0-34.8); MEAN CORPUSCULAR HGB CONC 32.2 g/dL (32.4-35.8); MEAN PLATELET VOLUME 9.5 fL (7.4-10.4); PLATELET COUNT 240 x10^3/uL (130-400); RED BLOOD COUNT 4.28 x10^6/uL (3.82-5.3); RED CELL DISTRIBUTION WIDTH 17.4 % (9.6-15.2)
[2020-03-25 08:36] LABS: ALANINE AMINOTRANSFERASE 13 U/L (12-78); ALBUMIN 2.6 g/dL (3.4-5.0); ANION GAP 7 mmol/L (5-15); CALCIUM 8.8 mg/dL (8.5-10.1); CHLORIDE 115 mmol/L (98-107); CREATININE 1.79 mg/dL (0.55-1.02)
[2020-03-25 08:39] LABS: ALKALINE PHOSPHATASE 92 U/L (45-117); BILIRUBIN,TOTAL 1.6 mg/dL (0.2-1.0); TOTAL PROTEIN 7.1 g/dL (6.4-8.2)
[2020-03-25 08:44] LABS: MD YES
--- NOTE | 2020-03-25 08:47 | NUR ---
PT HAD SLIGHTLY SEMI-FORMED SOFT BM. PT CHANGED AND NEW SHEETS AND PUREWICK PLACED. PT AO X 4. SKIN SLIGHTLY PALE, WARM AND DRY. BREAKFAST TRAY WAS ORDERED FOR PT. AWAITING BREAKFAST TRAY. PT AWARE WE ARE WAITING FOR ADMISSION. PT DENIES OTHER NEEDS AT THIS TIME. PT ON CONT BP, CARDIAC AND SPO2 MONITORS. SECOND REDRAW FOR LABS REVEALED H&H WDL. CALL LIGHT WITHIN REACH. WILL CONT TO MONITOR PT.
[2020-03-25 08:49] LABS: LYMPH#(MANUAL) 2.24 x10^3/uL (1-3.4); LYMPHS% (MANUAL) 15 % (22-44); MONOS#(MANUAL) 0.89 x10^3/uL (0.3-2.7); MONOS% (MANUAL) 6 % (2-9); REACTIVE LYMPHS # (MANUAL) 0.15 x10^3/uL (0-0); REACTIVE LYMPHS % (MANUAL) 1 % (0-0); SEG#(MANUAL) 5.81 x10^3/uL (1.8-6.8); SEGS% (MANUAL) 39 % (42-75)
[2020-03-25 08:50] LABS: BAND#(MANUAL) 4.62 x10^3/uL; BANDS%(MANUAL) 31 % (0-7); EOS#(MANUAL) 1.04 x10^3/uL (0.0-0.4); EOS% (MANUAL) 7 % (1-7); METAMYELOCYTES# (MANUAL) 0.15 x10^3/uL (0-0); METAMYELOCYTES% (MANUAL) 1 % (0-1)
[2020-03-25 08:51] LABS: <PLATELET ESTIMATE> ADEQUATE; <PLT MORPHOLOGY> NORMAL PLT MORPH; ANISOCYTOSIS 1+
[2020-03-25 08:52] LABS: PMNS WITH VACUOLES 1+
[2020-03-25] MEDS: SENNA/DOCUSATE TABLET PO SCH (09:03)
--- NOTE | 2020-03-25 09:55 | NUR ---
ADMITTING MD TAYLOR AT BEDSIDE FOR EVAL. PT EATING BREAKFAST. PT AO X 4. SKIN PWD. RESP EVEN AND UNLABORED. LEVO DRIP HELD AT THIS TIME PER ADMITTING MD TAYLOR. PT ON CONT BP, CARDIAC AND SPO2 MONITORS. CALL LIGHT WITHIN REACH. WILL CONT TO MONITOR PT.
[2020-03-25] MEDS ORDERED: HEPARIN 25,000 UNITS/250ML PMX 250 ML IV PRN (11:00)
[2020-03-25] MEDS ORDERED: HEPARIN 5,000 UNITS/ML, 1ML IV ONE (11:00)
[2020-03-25] MEDS ORDERED: HEPARIN 5,000 UNITS/ML, 1ML IV PRN (11:00)
--- NOTE | 2020-03-25 11:03 | NUR ---
PT'S BP WAS LOW FOR SEVERAL CONSECUTIVE BP'S. LEVOPHED DRIP RESTARTED. ADMITTING MD TAYLOR CALLED AND MESSAGE LEFT FOR RETURN CALL. PT AO X 4. SKIN SLIGHTLY PALE, WARM AND DRY. RESP EVEN AND UNLABORED. PT ATE THE MAJORITY OF HER BREAKFAST W/O DIFFICULTY. PT ON CONT BP, CARDIAC AND SPO2 MONITORS. CALL LIGHT WITHIN REACH.
--- NOTE | 2020-03-25 11:47 | NUR ---
REPORT TO RYAN GAN ON CICU.
[2020-03-25] MEDS: SODIUM CHLORIDE 0.9% 1,000 ML IV SCH ×2 (12:54→16:37)
[2020-03-25] MEDS: ERTAPENEM 1 GM in SODIUM CHLORIDE 0.9% 50 ML IV SCH (16:33)
[2020-03-25] MEDS: AMIODARONE 450 MG in DEXTROSE 5% 241 ML IV PRN (16:52)
[2020-03-25] MEDS: HEPARIN 5,000 UNITS/ML, 1ML IV PRN (16:52)
[2020-03-25] MEDS: HEPARIN 25,000 UNITS/250ML PMX 250 ML IV PRN (16:53)
[2020-03-25] MEDS ORDERED: ERTAPENEM 0.5 GM in SODIUM CHLORIDE 0.9% 50 ML IV SCH (16:57)
[2020-03-25] MEDS: ERTAPENEM 0.5 GM in SODIUM CHLORIDE 0.9% 50 ML IV SCH (16:59)
[2020-03-26] MEDS ORDERED: ALBUTEROL/IPRATROPIUM 2.5MG/0.5MG, 3 ML NPPB PRN (00:30)
[2020-03-26] MEDS ORDERED: ALBUTEROL SULFATE 2.5 MG/3 ML NPPB PRN (01:30)
[2020-03-26] MEDS: SODIUM CHLORIDE 0.9% 1,000 ML IV SCH (03:59)
[2020-03-26 04:00] VITALS: BP 112/73
[2020-03-26 04:26] LABS: BASOPHILS # (AUTO) 0.04 x10^3/uL (0-0.1); BASOPHILS % (AUTO) 0 % (0-1); EOSINOPHILS # (AUTO) 1.49 x10^3/uL (0-0.4); EOSINOPHILS % (AUTO) 15 % (1-7); LYMPHOCYTES # (AUTO) 1.92 x10^3/uL (1-3.4); LYMPHOCYTES % (AUTO) 19 % (22-44); MD NO; MEAN CORPUSCULAR HEMOGLOBIN 29.2 pg (27.0-34.8); MEAN CORPUSCULAR HGB CONC 32.2 g/dL (32.4-35.8); MEAN PLATELET VOLUME 9.6 fL (7.4-10.4); MONOCYTES # (AUTO) 0.96 x10^3/uL (0.2-0.8); MONOCYTES % (AUTO) 9 % (2-9); NEUTROPHILS % (AUTO) 57 % (42-75); PLATELET COUNT 193 x10^3/uL (130-400); RED BLOOD COUNT 3.54 x10^6/uL (3.82-5.3); RED CELL DISTRIBUTION WIDTH 17.8 % (9.6-15.2)
[2020-03-26 04:37] LABS: ANION GAP 5 mmol/L (5-15); CHLORIDE 115 mmol/L (98-107); CREATININE 1.14 mg/dL (0.55-1.02)
[2020-03-26] MEDS: HEPARIN 5,000 UNITS/ML, 1ML IV PRN (05:17)
[2020-03-26] MEDS: INSULIN LISPRO 100 UNITS/ML, PEN SQ-INSULIN SCH ×4 (07:00→23:21)
[2020-03-26] MEDS ORDERED: COSYNTROPIN 0.25 MG IVPush ONE (07:00)
[2020-03-26] MEDS ORDERED: METOPROLOL TARTRATE 25 MG TAB PO SCH (08:00)
[2020-03-26] MEDS: PANTOPRAZOLE 40 MG IV IVPush SCH (09:13)
[2020-03-26] MEDS: SENNA/DOCUSATE TABLET PO SCH (09:13)
[2020-03-26] MEDS: HEPARIN 25,000 UNITS/250ML PMX 250 ML IV PRN (15:48)
[2020-03-26] MEDS: AMIODARONE 450 MG in DEXTROSE 5% 241 ML IV PRN (15:48)
[2020-03-26] MEDS: ERTAPENEM 0.5 GM in SODIUM CHLORIDE 0.9% 50 ML IV SCH (19:08)
[2020-03-26 20:29] VITALS: BP 121/87
[2020-03-26] MEDS: METOPROLOL TARTRATE 25 MG TAB PO SCH (21:29)
[2020-03-26] MEDS: APIXABAN 5 MG TABLET PO SCH (21:30)
[2020-03-27] MEDS: METOPROLOL TARTRATE 25 MG TAB PO SCH ×4 (02:03→21:36)
[2020-03-27 02:06] VITALS: BP 113/83
[2020-03-27] MEDS: AMIODARONE 450 MG in DEXTROSE 5% 241 ML IV PRN ×2 (02:26→18:22)
[2020-03-27] MEDS: FILTER 0.22 MICRON IV PRN (02:27)
[2020-03-27] MEDS: INSULIN LISPRO 100 UNITS/ML, PEN SQ-INSULIN SCH ×4 (07:00→21:00)
[2020-03-27 07:29] VITALS: BP 113/79
[2020-03-27] MEDS: SENNA/DOCUSATE TABLET PO SCH (08:46)
[2020-03-27] MEDS: PANTOPRAZOLE 40 MG IV IVPush SCH (08:46)
[2020-03-27] MEDS: APIXABAN 5 MG TABLET PO SCH ×2 (08:46→21:35)
[2020-03-27 13:10] VITALS: BP 111/66
[2020-03-27] MEDS: DILTIAZEM 60 MG TABLET PO SCH ×2 (17:12→21:36)
[2020-03-27] MEDS: ERTAPENEM 0.5 GM in SODIUM CHLORIDE 0.9% 50 ML IV SCH (17:34)
[2020-03-27 18:47] VITALS: BP 122/84
[2020-03-27] MEDS ORDERED: HALOPERIDOL 5 MG/ML IV PRN (21:00)
[2020-03-27] MEDS ORDERED: HALOPERIDOL 5 MG/ML IM PRN (23:30)
[2020-03-28 00:18] VITALS: BP 112/82
[2020-03-28 04:23] LABS: CREATININE 0.89 mg/dL (0.55-1.02)
[2020-03-28] MEDS: INSULIN LISPRO 100 UNITS/ML, PEN SQ-INSULIN SCH ×4 (07:00→20:20)
[2020-03-28] MEDS: PANTOPRAZOLE 40 MG IV IVPush SCH (08:03)
[2020-03-28] MEDS: DILTIAZEM 60 MG TABLET PO SCH ×4 (08:04→20:15)
[2020-03-28 08:09] VITALS: BP 128/73
[2020-03-28] MEDS: METOPROLOL TARTRATE 25 MG TAB PO SCH ×2 (10:03→20:14)
[2020-03-28] MEDS: APIXABAN 5 MG TABLET PO SCH ×2 (10:03→20:15)
[2020-03-28] MEDS: SENNA/DOCUSATE TABLET PO SCH (10:03)
[2020-03-28] MEDS: AMIODARONE 450 MG in DEXTROSE 5% 241 ML IV PRN (11:25)
[2020-03-28] MEDS: FILTER 0.22 MICRON IV PRN (11:27)
[2020-03-28] MEDS ORDERED: QUETIAPINE 25MG TABLET PO PRN (13:30)
[2020-03-28] MEDS ORDERED: PHARMACY INSTRUCTION MC PRN (13:30)
[2020-03-28] MEDS ORDERED: INSTRUCTION SEE COMMENTS XX PRN (13:30)
[2020-03-28 14:30] VITALS: BP 135/85
[2020-03-28] MEDS: ERTAPENEM 1 GM in SODIUM CHLORIDE 0.9% 50 ML IV SCH (17:31)
[2020-03-28] MEDS: ALBUTEROL-IPRATROPIUM MDI INH INH PRN (18:17)
[2020-03-28 18:49] VITALS: BP 122/81
[2020-03-28] MEDS: MELATONIN 3 MG TABLET PO SCH (20:14)
[2020-03-29] MEDS: FILTER 0.22 MICRON IV PRN (01:46)
[2020-03-29] MEDS: AMIODARONE 450 MG in DEXTROSE 5% 241 ML IV PRN (01:46)
[2020-03-29] MEDS: ALBUTEROL-IPRATROPIUM MDI INH INH PRN ×3 (04:06→21:39)
[2020-03-29 04:35] LABS: MEAN CORPUSCULAR HEMOGLOBIN 28.7 pg (27.0-34.8); MEAN CORPUSCULAR HGB CONC 31.4 g/dL (32.4-35.8); MEAN PLATELET VOLUME 8.9 fL (7.4-10.4); PLATELET COUNT 248 x10^3/uL (130-400); RED BLOOD COUNT 3.83 x10^6/uL (3.82-5.3); RED CELL DISTRIBUTION WIDTH 17.3 % (9.6-15.2)
[2020-03-29 04:40] LABS: ANION GAP 6 mmol/L (5-15); CALCIUM 9.2 mg/dL (8.5-10.1); CHLORIDE 110 mmol/L (98-107); CREATININE 0.75 mg/dL (0.55-1.02)
[2020-03-29] MEDS: DILTIAZEM 60 MG TABLET PO SCH (05:32)
[2020-03-29] MEDS: PANTOPRAZOLE 40MG TABLET PO SCH (05:32)
[2020-03-29 05:47] LABS: BASOPHILS # (AUTO) 0.06 x10^3/uL (0-0.1); BASOPHILS % (AUTO) 1 % (0-1); EOSINOPHILS # (AUTO) 1.35 x10^3/uL (0-0.4); EOSINOPHILS % (AUTO) 11 % (1-7); LYMPHOCYTES # (AUTO) 2.37 x10^3/uL (1-3.4); LYMPHOCYTES % (AUTO) 19 % (22-44); MD SCAN; MONOCYTES # (AUTO) 0.68 x10^3/uL (0.2-0.8); MONOCYTES % (AUTO) 5 % (2-9); NEUTROPHILS # (AUTO) 8.01 x10^3/uL (1.8-6.8); NEUTROPHILS % (AUTO) 64 % (42-75)
[2020-03-29] MEDS: INSULIN LISPRO 100 UNITS/ML, PEN SQ-INSULIN SCH ×4 (07:00→21:00)
[2020-03-29 08:03] VITALS: BP 112/72
[2020-03-29] MEDS: APIXABAN 5 MG TABLET PO SCH ×2 (08:32→21:38)
[2020-03-29] MEDS: METOPROLOL TARTRATE 25 MG TAB PO SCH ×2 (08:33→21:39)
[2020-03-29] MEDS: SENNA/DOCUSATE TABLET PO SCH (08:33)
[2020-03-29] MEDS: DILTIAZEM 240 MG CAP.ER.24H PO SCH (11:10)
[2020-03-29 12:10] VITALS: BP 123/85
[2020-03-29] MEDS: ERTAPENEM 1 GM in SODIUM CHLORIDE 0.9% 50 ML IV SCH (16:53)
[2020-03-29 18:43] VITALS: BP 114/77
[2020-03-29] MEDS: MELATONIN 3 MG TABLET PO SCH (21:38)
[2020-03-29 21:43] VITALS: BP 134/77
[2020-03-30 02:00] VITALS: BP 127/72
[2020-03-30] MEDS: PANTOPRAZOLE 40MG TABLET PO SCH (05:37)
[2020-03-30 05:53] LABS: MEAN CORPUSCULAR HEMOGLOBIN 28.9 pg (27.0-34.8); MEAN CORPUSCULAR HGB CONC 32.1 g/dL (32.4-35.8); MEAN PLATELET VOLUME 9.5 fL (7.4-10.4); PLATELET COUNT 288 x10^3/uL (130-400); RED BLOOD COUNT 3.83 x10^6/uL (3.82-5.3); RED CELL DISTRIBUTION WIDTH 16.8 % (9.6-15.2)
[2020-03-30 06:17] LABS: MD YES
[2020-03-30 06:23] LABS: BAND#(MANUAL) 0.14 x10^3/uL; BANDS%(MANUAL) 1 % (0-7); BASOS#(MANUAL) 0.14 x10^3/uL (0-0.1); BASOS% (MANUAL) 1 % (0-1); EOS% (MANUAL) 9 % (1-7); LYMPH#(MANUAL) 2.74 x10^3/uL (1-3.4); LYMPHS% (MANUAL) 19 % (22-44); METAMYELOCYTES# (MANUAL) 0.43 x10^3/uL (0-0); METAMYELOCYTES% (MANUAL) 3 % (0-1); MONOS#(MANUAL) 1.15 x10^3/uL (0.3-2.7); MONOS% (MANUAL) 8 % (2-9); MYELOCYTES# (MANUAL) 0.58 x10^3/uL (0-0); MYELOCYTES% (MANUAL) 4 % (0-0); REACTIVE LYMPHS # (MANUAL) 0.29 x10^3/uL (0-0); REACTIVE LYMPHS % (MANUAL) 2 % (0-0); SEG#(MANUAL) 7.63 x10^3/uL (1.8-6.8); SEGS% (MANUAL) 53 % (42-75)
[2020-03-30 06:24] LABS: ANISOCYTOSIS 1+
[2020-03-30 06:25] LABS: <PLATELET ESTIMATE> ADEQUATE; <PLT MORPHOLOGY> NORMAL PLT MORPH; OVALOCYTES 1+
[2020-03-30] MEDS: INSULIN LISPRO 100 UNITS/ML, PEN SQ-INSULIN SCH ×2 (07:00→11:00)
[2020-03-30 07:57] VITALS: BP 125/86
[2020-03-30] MEDS: APIXABAN 5 MG TABLET PO SCH ×2 (08:19→20:48)
[2020-03-30] MEDS: DILTIAZEM 240 MG CAP.ER.24H PO SCH (08:19)
[2020-03-30] MEDS: SENNA/DOCUSATE TABLET PO SCH (08:19)
[2020-03-30] MEDS: ALBUTEROL-IPRATROPIUM MDI INH INH PRN ×2 (12:26→20:49)
[2020-03-30 13:53] VITALS: BP 124/67
[2020-03-30 15:43] LABS: MICROSCOPIC AUTO
[2020-03-30 19:25] VITALS: BP 133/78
[2020-03-30] MEDS: MELATONIN 3 MG TABLET PO SCH (20:48)
[2020-03-30] MEDS: METOPROLOL SUCCINATE 50 MG TAB.ER.24H PO SCH (20:48)
[2020-03-31 00:56] VITALS: BP 105/71
[2020-03-31 04:42] LABS: MEAN CORPUSCULAR HEMOGLOBIN 29.7 pg (27.0-34.8); MEAN CORPUSCULAR HGB CONC 32.8 g/dL (32.4-35.8); MEAN PLATELET VOLUME 8.8 fL (7.4-10.4); PLATELET COUNT 266 x10^3/uL (130-400); RED BLOOD COUNT 3.65 x10^6/uL (3.82-5.3); RED CELL DISTRIBUTION WIDTH 16.6 % (9.6-15.2)
[2020-03-31 04:52] LABS: ANION GAP 4 mmol/L (5-15); CALCIUM 8.9 mg/dL (8.5-10.1); CHLORIDE 108 mmol/L (98-107)
[2020-03-31] MEDS: PANTOPRAZOLE 40MG TABLET PO SCH (05:14)
[2020-03-31 05:42] LABS: MD YES
[2020-03-31 05:47] LABS: ANISOCYTOSIS 1+; EOS#(MANUAL) 1.56 x10^3/uL (0.0-0.4); EOS% (MANUAL) 12 % (1-7); LYMPHS% (MANUAL) 30 % (22-44); METAMYELOCYTES# (MANUAL) 0.13 x10^3/uL (0-0); METAMYELOCYTES% (MANUAL) 1 % (0-1); MONOS#(MANUAL) 0.78 x10^3/uL (0.3-2.7); MONOS% (MANUAL) 6 % (2-9); MYELOCYTES# (MANUAL) 0.52 x10^3/uL (0-0); MYELOCYTES% (MANUAL) 4 % (0-0); OVALOCYTES 1+; SEG#(MANUAL) 6.11 x10^3/uL (1.8-6.8); SEGS% (MANUAL) 47 % (42-75)
[2020-03-31 05:48] LABS: <PLATELET ESTIMATE> ADEQUATE; <PLT MORPHOLOGY> NORMAL PLT MORPH
[2020-03-31 06:47] VITALS: BP 115/67
[2020-03-31] MEDS: SENNA/DOCUSATE TABLET PO SCH (08:46)
[2020-03-31] MEDS: DILTIAZEM 240 MG CAP.ER.24H PO SCH (08:46)
[2020-03-31] MEDS: APIXABAN 5 MG TABLET PO SCH (08:47)
[2020-03-31 12:07] VITALS: BP 120/67
[2020-03-31] MEDS ORDERED: CEFAZOLIN PMX 1GM/50ML 50 ML IVPB ONE (16:30)
[2020-03-31 21:26] VITALS: BP 141/94
[2020-03-31] MEDS: ALBUTEROL-IPRATROPIUM MDI INH INH PRN (21:27)
[2020-03-31] MEDS: MELATONIN 3 MG TABLET PO SCH (21:27)
[2020-03-31] MEDS: METOPROLOL SUCCINATE 50 MG TAB.ER.24H PO SCH (21:27)
[2020-04-01 02:10] VITALS: BP 127/68
[2020-04-01] MEDS: PANTOPRAZOLE 40MG TABLET PO SCH (05:49)
[2020-04-01 06:59] VITALS: BP 109/67
[2020-04-01] MEDS: SENNA/DOCUSATE TABLET PO SCH (09:51)
[2020-04-01] MEDS: DILTIAZEM 240 MG CAP.ER.24H PO SCH (09:52)
[2020-04-01] MEDS ORDERED: CEFAZOLIN PMX 1GM/50ML 50 ML IVPB ONE (11:00)
[2020-04-01 14:20] VITALS: BP 127/83
[2020-04-01] MEDS ORDERED: MIDAZOLAM 1 MG/ML, 5ML ONE (16:07)
[2020-04-01] MEDS ORDERED: CEFAZOLIN PMX 1GM/50ML 50 ML ONE (16:07)
[2020-04-01] MEDS ORDERED: FENTANYL PF 100 MCG/2ML ONE (16:07)
[2020-04-01] MEDS ORDERED: LIDOCAINE 2%, 20ML ONE (16:08)
[2020-04-01] MEDS ORDERED: CEFAZOLIN 1,000 MG ONE (16:08)
[2020-04-01] MEDS ORDERED: HOLD MEDICATION MC PRN (18:00)
[2020-04-01] MEDS ORDERED: HYDROcodone/APAP 5/325 TABLET PO PRN (18:00)
[2020-04-01] MEDS: MELATONIN 3 MG TABLET PO SCH (20:20)
[2020-04-01] MEDS: METOPROLOL SUCCINATE 50 MG TAB.ER.24H PO SCH (20:21)
[2020-04-01] MEDS: SODIUM CHLORIDE FLUSH 10ML SYR IVF SCH (20:25)
[2020-04-01 20:30] VITALS: BP 112/75
[2020-04-02] MEDS: CEFAZOLIN PMX 1GM/50ML 50 ML IVPB SCH ×3 (00:54→16:50)
[2020-04-02 06:06] LABS: ANION GAP 5 mmol/L (5-15); CALCIUM 8.6 mg/dL (8.5-10.1); CHLORIDE 108 mmol/L (98-107)
[2020-04-02 06:14] LABS: BASOPHILS # (AUTO) 0.07 x10^3/uL (0-0.1); BASOPHILS % (AUTO) 1 % (0-1); EOSINOPHILS # (AUTO) 1.14 x10^3/uL (0-0.4); EOSINOPHILS % (AUTO) 9 % (1-7); LYMPHOCYTES # (AUTO) 2.71 x10^3/uL (1-3.4); LYMPHOCYTES % (AUTO) 22 % (22-44); MD NO; MEAN CORPUSCULAR HEMOGLOBIN 29.1 pg (27.0-34.8); MEAN CORPUSCULAR HGB CONC 31.7 g/dL (32.4-35.8); MEAN PLATELET VOLUME 8.7 fL (7.4-10.4); MONOCYTES # (AUTO) 0.69 x10^3/uL (0.2-0.8); MONOCYTES % (AUTO) 6 % (2-9); NEUTROPHILS # (AUTO) 7.51 x10^3/uL (1.8-6.8); NEUTROPHILS % (AUTO) 62 % (42-75); PLATELET COUNT 262 x10^3/uL (130-400); RED BLOOD COUNT 3.91 x10^6/uL (3.82-5.3); RED CELL DISTRIBUTION WIDTH 16.7 % (9.6-15.2)
[2020-04-02 06:15] LABS: CREATININE 0.69 mg/dL (0.55-1.02)
[2020-04-02] MEDS: PANTOPRAZOLE 40MG TABLET PO SCH (06:31)
[2020-04-02] MEDS ORDERED: MAGNESIUM SULFATE PMX 4GM/100M 100 ML ONE (08:33)
[2020-04-02] MEDS: SENNA/DOCUSATE TABLET PO SCH (08:56)
[2020-04-02] MEDS: SODIUM CHLORIDE FLUSH 10ML SYR IVF SCH ×2 (08:57→21:00)
[2020-04-02] MEDS ORDERED: DIGOXIN 0.25 MG/ML, 2ML IVPush ONE ×3 (09:00→17:00)
[2020-04-02] MEDS ORDERED: MAGNESIUM SULFATE PMX 4GM/100M 100 ML IV ONE (09:00)
[2020-04-02] MEDS: DILTIAZEM 240 MG CAP.ER.24H PO SCH (09:05)
[2020-04-02 09:09] VITALS: BP 113/69
[2020-04-02 12:27] VITALS: BP 132/79
[2020-04-02 20:09] VITALS: BP 103/70
[2020-04-02] MEDS: APIXABAN 5 MG TABLET PO SCH (23:09)
[2020-04-02] MEDS: MELATONIN 3 MG TABLET PO SCH (23:09)
[2020-04-02] MEDS: METOPROLOL SUCCINATE 50 MG TAB.ER.24H PO SCH (23:13)
[2020-04-02 23:15] VITALS: BP 113/68
[2020-04-03 02:29] VITALS: BP 122/78
[2020-04-03 04:30] LABS: BASOPHILS # (AUTO) 0.16 x10^3/uL (0-0.1); BASOPHILS % (AUTO) 1 % (0-1); EOSINOPHILS # (AUTO) 0.96 x10^3/uL (0-0.4); EOSINOPHILS % (AUTO) 8 % (1-7); LYMPHOCYTES % (AUTO) 19 % (22-44); MD NO; MEAN CORPUSCULAR HEMOGLOBIN 29.3 pg (27.0-34.8); MEAN CORPUSCULAR HGB CONC 31.7 g/dL (32.4-35.8); MEAN PLATELET VOLUME 9.1 fL (7.4-10.4); MONOCYTES # (AUTO) 1.03 x10^3/uL (0.2-0.8); MONOCYTES % (AUTO) 9 % (2-9); NEUTROPHILS # (AUTO) 7.67 x10^3/uL (1.8-6.8); NEUTROPHILS % (AUTO) 63 % (42-75); PLATELET COUNT 239 x10^3/uL (130-400); RED BLOOD COUNT 3.93 x10^6/uL (3.82-5.3); RED CELL DISTRIBUTION WIDTH 15.7 % (9.6-15.2)
[2020-04-03 04:36] LABS: ANION GAP 4 mmol/L (5-15); CALCIUM 8.6 mg/dL (8.5-10.1); CHLORIDE 106 mmol/L (98-107); CREATININE 0.87 mg/dL (0.55-1.02)
[2020-04-03] MEDS: PANTOPRAZOLE 40MG TABLET PO SCH (06:25)
[2020-04-03 07:00] VITALS: BP 106/70
[2020-04-03] MEDS: SENNA/DOCUSATE TABLET PO SCH (09:22)
[2020-04-03] MEDS: DIGOXIN 0.125 MG TABLET PO SCH (09:23)
[2020-04-03] MEDS: APIXABAN 5 MG TABLET PO SCH ×2 (09:23→21:35)
[2020-04-03] MEDS: METOPROLOL SUCCINATE 50 MG TAB.ER.24H PO SCH ×2 (09:23→21:35)
[2020-04-03] MEDS: SPIRONOLACTONE 25 MG TABLET PO SCH (09:23)
[2020-04-03] MEDS: POLYETHYLENE GLYCOL 17 GM PACKET PO PRN (09:25)
[2020-04-03] MEDS: SODIUM CHLORIDE FLUSH 10ML SYR IVF SCH ×2 (09:39→21:35)
[2020-04-03 13:25] VITALS: BP 109/71
[2020-04-03 18:48] VITALS: BP 109/69
[2020-04-03] MEDS: MELATONIN 3 MG TABLET PO SCH (21:35)
[2020-04-03 21:38] VITALS: BP 122/77
[2020-04-04 00:31] VITALS: BP 119/74
[2020-04-04] MEDS: PANTOPRAZOLE 40MG TABLET PO SCH (05:54)
[2020-04-04 06:58] VITALS: BP 118/62
[2020-04-04 07:30] VITALS: BP 116/73
[2020-04-04 07:35] VITALS: BP 109/67
[2020-04-04 07:40] VITALS: BP 101/59
[2020-04-04] MEDS: POLYETHYLENE GLYCOL 17 GM PACKET PO PRN (08:24)
[2020-04-04] MEDS: SENNA/DOCUSATE TABLET PO SCH (08:24)
[2020-04-04] MEDS: SPIRONOLACTONE 25 MG TABLET PO SCH (08:25)
[2020-04-04] MEDS: APIXABAN 5 MG TABLET PO SCH (08:25)
[2020-04-04] MEDS: DIGOXIN 0.125 MG TABLET PO SCH (08:25)
[2020-04-04] MEDS: METOPROLOL SUCCINATE 50 MG TAB.ER.24H PO SCH (08:25)
[2020-04-04] MEDS: SODIUM CHLORIDE FLUSH 10ML SYR IVF SCH (08:26)
[2020-04-04] MEDS ORDERED: SPIRONOLACTONE 25 MG TABLET PO SCH (09:00)
[2020-04-04] MEDS ORDERED: LISINOPRIL 5 MG TABLET PO SCH (09:00)
[2020-04-04] MEDS ORDERED: POLY17PO5 PO (10:13)
[2020-04-04] MEDS ORDERED: LISI5TAB7 PO (10:13)
[2020-04-04] MEDS ORDERED: DIGO125T85 PO (10:13)
[2020-04-04] MEDS ORDERED: APIX5TAB PO (10:13)
[2020-04-04] MEDS ORDERED: SPIR25TA PO (13:35)
[2020-04-04 13:50] VITALS: BP 107/75
[2020-05-06] MEDS ORDERED: FURO20TA3 PO ×2 (10:46)
[2020-05-06] MEDS ORDERED: DIGO125T85 PO (10:46)
[2020-05-06] MEDS ORDERED: CARV3.1212 PO (10:46)
[2020-05-06] MEDS ORDERED: SULINDAC PO (10:46)
[2020-05-06] MEDS ORDERED: POTA10CA PO (10:46)
[2020-05-08] MEDS ORDERED: APIX2.5T PO (12:46)
[2020-05-08] MEDS ORDERED: CEPH-368 PO (12:46)
[2020-06-24] MEDS ORDERED: AMIO100T4 PO (20:11)
[2020-06-24] MEDS ORDERED: DOCU100C33 PO (20:11)
[2020-06-24] MEDS ORDERED: CYAN500T54 PO (20:11)
[2020-06-24] MEDS ORDERED: CEPH-376 PO (20:11)
[2020-06-27] MEDS ORDERED: SUCR1TAB33 PO (10:07)
[2020-06-27] MEDS ORDERED: PANT40TA6 PO (10:07)
== END 2020-04-04 16:57 | DRG 853 ==
LOC: ED 15:32 → EDIP 16:54 → CCU 03-25 12:20 → 5SO 03-26 18:27
PROVIDERS: ADMIT Internal Medicine; ATTEND Internal Medicine
PROC: 02HV33Z Insertion of Infusion Device into Superior Vena Cava, Percutaneous Approach (ICD-10-PCS; principal; 2020-03-24)
PROC: B548ZZA Ultrasonography of Superior Vena Cava, Guidance (ICD-10-PCS; 2020-03-24)
PROC: 0T9B30Z Drainage of Bladder with Drainage Device, Percutaneous Approach (ICD-10-PCS; 2020-03-24)
PROC: 0JH604Z Insertion of Pacemaker, Single Chamber into Chest Subcutaneous Tissue and Fascia, Open Approach (ICD-10-PCS; 2020-04-01)
PROC: 02HK3JZ Insertion of Pacemaker Lead into Right Ventricle, Percutaneous Approach (ICD-10-PCS; 2020-04-01)
DX: A41.51 Sepsis due to Escherichia coli [E. coli] (principal); N17.0 Acute kidney failure with tubular necrosis; E43 Unspecified severe protein-calorie malnutrition; G93.41 Metabolic encephalopathy; N39.0 Urinary tract infection, site not specified; I48.20 Chronic atrial fibrillation, unspecified; E87.2 Acidosis; J96.10 Chronic respiratory failure, unspecified whether with hypoxia or hypercapnia; I50.20 Unspecified systolic (congestive) heart failure; Z16.12 Extended spectrum beta lactamase (ESBL) resistance; I42.9 Cardiomyopathy, unspecified; D68.69 Other thrombophilia; F05 Delirium due to known physiological condition; E83.42 Hypomagnesemia; K44.9 Diaphragmatic hernia without obstruction or gangrene; M45.9 Ankylosing spondylitis of unspecified sites in spine; E78.5 Hyperlipidemia, unspecified; G35 Multiple sclerosis; D64.9 Anemia, unspecified; J44.9 Chronic obstructive pulmonary disease, unspecified; E11.9 Type 2 diabetes mellitus without complications; I50.82 Biventricular heart failure; I27.29 Other secondary pulmonary hypertension; F32.9 Major depressive disorder, single episode, unspecified; F03.90 Unspecified dementia, unspecified severity, without behavioral disturbance, psychotic disturbance, mood disturbance, and anxiety; G25.0 Essential tremor; I11.0 Hypertensive heart disease with heart failure; I49.5 Sick sinus syndrome; Z96.651 Presence of right artificial knee joint; B95.2 Enterococcus as the cause of diseases classified elsewhere; L53.9 Erythematous condition, unspecified; Z68.31 Body mass index [BMI] 31.0-31.9, adult; Z86.19 Personal history of other infectious and parasitic diseases; Z79.4 Long term (current) use of insulin; Z79.899 Other long term (current) drug therapy; Z82.49 Family history of ischemic heart disease and other diseases of the circulatory system; Z86.73 Personal history of transient ischemic attack (TIA), and cerebral infarction without residual deficits; Z87.891 Personal history of nicotine dependence; Z99.81 Dependence on supplemental oxygen; Z79.84 Long term (current) use of oral hypoglycemic drugs; Z98.49 Cataract extraction status, unspecified eye; Z90.49 Acquired absence of other specified parts of digestive tract; Z88.8 Allergy status to other drugs, medicaments and biological substances; Z79.82 Long term (current) use of aspirin; Z79.01 Long term (current) use of anticoagulants
CPT/HCPCS: 33207; 36415; 36556; 71045; 80048; 80053; 81001; 82533; 82565; 82962; 83735; 83880; 84100; 84443; 84484; 85025; 85379; 85520; 85610; 85730; 87040; 87077; 87081; 87086; 87184; 87186; 93005; 93970; 99156; 99157; 99292; C1779; C1786; C1892; G0378; J0690; J1335; J1644; J2250; J3010; J7060; P9047; C9113; J0282; J0834; J1160; J1630; J1815; J3475; J7030; J7050